=== PATIENT | male | born 1945 ===

== ENCOUNTER 2016-07-18 18:11 | Emergency (ER) | payer BC ==
[2016-07-18] MEDS ORDERED: ASPIRIN 81 MG CHEWABLE TABLET PO ONE (18:27)
[2016-07-18] MEDS ORDERED: 0.9 % SODIUM CHLORIDE 1000ML 1,000 ML IV SCH (18:30)
[2016-07-18] MEDS ORDERED: NITROGLYCERIN/D5W 50 MG in DEXTROSE 5 % IN WATER 1 BAG IV SCH ×2 (18:30)
--- NOTE | 2016-07-18 18:32 | Emergency Department Record ---
History of Present Illness - General Chief Complaint: Chest Pain Stated Complaint: CHEST PAIN Time Seen by Provider: 07/18/16 18:26 Source: Patient Mode of Arrival: Wheelchair Limitations: No limitations - History of Present Illness Initial Comments: 70 yo male presents to ED with a CC of worsening chest pain that began last night. Patient describes as symptoms as a "band around the chest", intermittent last night, but more constant this afternoon around 16:00. Patient reports NJ x 5, with stents x 5, sees Dr. Edward Bustillo with [facility]. Patient denies fevers, chills, cough, or recent illness. MD Complaint: Chest pain Onset/Timin -: Hour(s) Onset: Other Pain Location: Substernal Pain Radiation: Jaw/teeth Severity scale (1-10): 10 Quality: Tightness, Similar to prior [place] Consistency: Constant Improves With: Nothing Worsens With: Nothing Treatments Prior to Arrival: Aspirin Treatment Prior to Arrival Comment:: 81mg - Related Data Home Medications Medication Instructions Recorded Confirmed Last Taken Clopidogrel Bisulfate [Clopidogrel] 75 mg PO DAILY 08/10/14 12/14/14 12/13/14 Fluoxetine HCl 40 mg PO DAILY 08/10/14 12/14/14 12/13/14 Isradipine [Isradipine] 5 mg PO DAILY 08/10/14 12/14/14 12/13/14 Metoprolol Tartrate [Metoprolol 50 mg PO DAILY 08/10/14 12/14/14 12/13/14 Tartrate] Simvastatin [Simvastatin] 40 mg PO DAILY 08/10/14 12/14/14 12/13/14 Clopidogrel Bisulfate [Plavix] 75 mg PO DAILY 12/14/14 12/14/14 12/13/14 Previous Rx's Medication Instructions Recorded Hydrocodone/Acetaminophen [Rhodes 0.5 - 1 tab PO TID PRN #10 tab 12/14/14 5mg/325mg] Hydrocodone/Acetaminophen [Rhodes 1 tab PO Q6H PRN #20 tab 12/14/14 5mg/325mg] Allergies Allergy/AdvReac Type Severity Reaction Status Date / Time No Known Drug Allergies Allergy Verified 07/18/16 18:15 Travel Screening - Travel/Exposure Within Last 30 Days Have you traveled within the last 30 days?: No - Travel/Exposure Within Last Year Have you traveled outside the [place] in the last year?: No - Additonal Travel Details Have you been exposed to anyone with a communicable illness?: No - Travel Symptoms Symptom Screening: None Review of Systems Constitutional: Denies: Chills, Fever, Malaise, Night sweats Eyes: Denies: Eye discharge, Eye pain ENT: Denies: Congestion, Ear pain, Epistaxis Respiratory: Denies: Cough, Dyspnea Cardiovascular: Reports: Chest pain. Denies: Dyspnea on exertion, Palpitations Endocrine: Denies: Fatigue, Heat or cold intolerance Gastrointestinal: Denies: Abdominal pain, Nausea, Vomiting Genitourinary: Reports: Hematuria. Denies: Incontinence, Retention Musculoskeletal: Denies: Arthralgia, Back pain, Gout, Joint swelling Skin: Denies: Bruising, Change in color Neurological: Denies: Abnormal gait, Confusion, Headache, Seizure Psychiatric: Denies: Anxiety Hematological/Lymphatic: Denies: Anemia, Blood Clots Past Medical History - SOCIAL HISTORY Smoking Status: Never smoker Alcohol Use: None Drug Use: None - RESPIRATORY Hx Respiratory Disorders: Yes Hx Sleep Apnea: Yes Hx of CPAP: Yes - CARDIOVASCULAR Hx Cardio Disorders: Yes Hx Cardiac Cath: Yes Hx Heart Attack: Yes Hx Hypertension: Yes Comment:: 5 stents - NEURO Hx Neuro Disorders: Yes Hx CVA: Yes - GI Hx GI Disorders: Yes Hx GI Bleed: Yes - Hx Genitourinary Disorders: No - ENDOCRINE Hx Endocrine Disorders: Yes Hx Thyroid Disease: Yes (enlarged) - MUSCULOSKELETAL Hx Musculoskeletal Disorders: Yes Hx Arthritis: No Hx Musculoskeletal Disease: Yes Comment:: right hip replaced - PSYCH Hx Psych Problems: No - HEMATOLOGY/ONCOLOGY Hx Hematology/Oncology Disorders: No Family Medical History Any Significant Family History?: No Hx Cancer: Mother Hx Heart Disease: Father Physical Exam - General General Appearance: Alert, Oriented x3, Cooperative, Moderate distress (appears in moderate distress due to his pain symptoms) Limitations: No limitations - Head Head exam: Atraumatic, Normocephalic, Normal inspection Head exam detail: negative: Abrasion, Contusion, Ramsey's sign, General tenderness, Hematoma, Laceration - Eye Eye exam: Normal appearance. negative: Conjunctival injection, Periorbital swelling, Periorbital tenderness, Scleral icterus - ENT Ear exam: negative: Auricular hematoma, Auricular trauma Nasal Exam: negative: Active bleeding, Discharge, Dried blood Mouth exam: negative: Drooling, Laceration, Tongue elevation - Neck Neck exam: Normal inspection. negative: Meningismus, Tenderness - Respiratory Respiratory exam: Normal lung sounds bilaterally. negative: Respiratory distress, Rhonchi, Stridor, Wheezes - Cardiovascular Cardiovascular Exam: Regular rate, Normal rhythm, Normal heart sounds - GI/Abdominal GI/Abdominal exam: Soft. negative: Rebound, Rigid, Tenderness - Rectal Rectal exam: Deferred - exam: Deferred - Extremities Extremities exam: Normal inspection. negative: Calf tenderness, Pedal edema, Tenderness - Back Back exam: Reports: Normal inspection. Denies: CVA tenderness (R), CVA tenderness (L) - Neurological Neurological exam: Alert, Normal gait, Oriented X3 - Psychiatric Psychiatric exam: Normal affect, Normal mood - Skin Skin exam: Normal color. negative: Abrasion Type of lesion: negative: abrasion Course Vital Signs 07/18/16 18:15 Temperature 97.9 F Pulse Rate 94 H Respiratory 18 Rate Blood Pressure 162/94 Pulse Ox 98 - Reevaluation(s) Reevaluation #1: 07/18/16 18:31 EKG: NSR 95 Normal axis Normal intervals ST depression I, AVLV4-V6 new from previous 09/12/2003 Reevaluation #2: 07/18/16 18:34 Repeat EK:27 NSR 89, Normal axis Normal intervals ST depression I, AVL, [id number] from initial EKG Nitro and Heparin drips ordered to infuse. Reevaluation #3: 07/18/16 19:07 Labs reviewed, Troponin 0.047, labs are grossly unremarkable for an acute process. [facility] 1-call contacted for transfer for NSTEMI. Reevaluation #4: 07/18/16 19:13 Case was discussed with Dr. Smith, EKG faxed to him directly. Will return call shortly. Reevaluation #5: 07/18/16 19:19 Case was discussed with Dr. Smith, will accept patient to SDU for NSTEMI. Face sheet faxed to [facility] for bed request. Patient and family were updated on all results, patient reports improvement in his pain, states "it's much more tolerable". Will continue to monitor pending bed placement. Medical Decision Making - Lab Data Result diagrams: 07/18/16 18:25 07/18/16 18:25 Critical Care Time Critical Care Time: Yes Total Critical Care Time: 45 Critical Care Time: Diagnosis and treatment of NSTEMI, arrangement for transfer to [facility], serial EKGs. Disposition Disposition: Transfer Clinical Impression: NSTEMI (non-ST elevated myocardial infarction) Chest pain Qualifiers: Chest pain type: unspecified Qualified Code(s): R07.9 - Chest pain, unspecified Disposition: Acute Care Hospital Transfer Transfer To: [facility] Reason For Transfer: Cardiac Ischemia Accepting Physician: Luis Time Discussed w/Accepting Physician: 19:20 Condition: (2) Stable Forms: Patient Portal Access Time of Disposition: 19:20
[2016-07-18] MEDS ORDERED: HEPARIN SODIUM 1000 UNIT/1 ML 10ML VIAL IVP ONE (18:35)
[2016-07-18 18:40] LABS: BASO % 0.3 % (0-6); EOS % 4.5 % (0-6); GRAN % 43.8 % (47-80); HEMATOCRIT 43.6 % (42.0-52.0); HEMOGLOBIN 14.9 gm/dl (14.0-18.0); LYMPH % 40.4 % (16-45); MEAN CELL VOLUME 82.4 fl (81-97); MEAN CORPUSCULAR HEMOGLOBIN 28.2 pg (27-33); MEAN CORPUSCULAR HGB CONC 34.2 g/dl (32-36); MEAN PLATELET VOLUME 10.8 fl (7.4-10.4); PLATELET COUNT 187 K/uL (130-400); RED BLOOD COUNT 5.29 M/uL (4.40-5.70); RED CELL DISTRIBUTION WIDTH 13.5 % (11.5-14.5); WHITE BLOOD COUNT W/O DIFF 6.7 K/uL (4.2-12.2)
[2016-07-18] MEDS ORDERED: HEPARIN SODIUM/D5W 25,000 UNITS in DEXTROSE 5 % IN WATER 1 BAG IV SCH ×2 (18:45)
[2016-07-18 18:53] LABS: ALB/GLOB RATIO 1.5 (1.1-1.8); ALBUMIN 4.5 gm/dL (3.5-5.0); ALKALINE PHOSPHATASE 139 U/L (38-126); ALT/SGPT 31 U/L (21-72); ANION GAP 13.4 (7-16); AST/SGOT 20 U/L (17-59); BILIRUBIN,TOTAL 1.16 mg/dL (0.2-1.3); BLOOD UREA NITROGEN 17 mg/dL (9-20); CARBON DIOXIDE 26.6 mmol/L (22-30); CREATINE PHOSPHOKINASE 53 U/L (55-170); CREATININE 0.9 mg/dL (0.66-1.25); EST GLOMERULAR FILTRATION RATE > 60 ml/min; GLUCOSE,RANDOM 144 mg/dL (70-110); TOTAL PROTEIN 7.5 gm/dL (6.3-8.2)
[2016-07-18 19:04] LABS: CKMB 1.1 ug/L (0-6); TROPONIN I 0.047 ng/mL (0.00-0.034)
--- NOTE | 2016-07-21 14:52 | RADIOLOGY REPORT ---
EXAM: SEMI-ERECT PORTABLE CHEST HISTORY: CHEST PAIN. TECHNIQUE: A semi-erect portable chest was obtained. Comparison: 08/04/14 chest. FINDINGS: The heart size is stable. The lungs are clear. No pneumothorax. IMPRESSION: NEGATIVE CHEST EXAMINATION. JOB NUMBER: [id number] MTDD
== END 2016-07-18 20:00 | disposition short-term general hospital (02) ==
LOC: ER 18:11
DX: I21.4 Non-ST elevation (NSTEMI) myocardial infarction (principal); I10 Essential (primary) hypertension; I25.2 Old myocardial infarction
CPT/HCPCS: 71010; 80053; 82550; 82553; 84484; 85025; 93005; 93010; 96365; 96366; 96368; 96375; 99285; J7030

== ENCOUNTER 2017-12-09 22:17 | Emergency (ER) | payer BC ==
[2017-12-09] MEDS ORDERED: ASPIRIN 325 MG TABLET PO ONE (23:05)
--- NOTE | 2017-12-09 23:08 | Emergency Department Record ---
History of Present Illness - General Chief Complaint: Difficulty Breathing Stated Complaint: ANEESH Time Seen by Provider: 12/09/17 22:53 Source: Patient Mode of Arrival: Wheelchair Limitations: No limitations - History of Present Illness Initial Comments: The patient is here due to a 4 day hx of progressively increasing VILLA and chest discomfort with exertion. The patient presently denies any pain or discomfort and states it only comes on with exertion. He has an extensive cardiac hx and states he has 10 stents. The patient did just have a hip replacement about 3 weeks ago. MD Complaint: Shortness of breath Onset/Timin -: Days(s) Severity: Mild Associated Symptoms: Denies other symptoms - Related Data Home Oxygen Therapy: No Home Medications Medication Instructions Recorded Confirmed Last Taken Aspirin 81 mg PO DAILY 12/09/17 12/09/17 Unknown Oxybutynin Chloride [Oxybutynin 5 mg PO DAILY 12/09/17 12/09/17 Unknown Chloride ER] Allergies Allergy/AdvReac Type Severity Reaction Status Date / Time No Known Drug Allergies Allergy Verified 07/18/16 18:15 Travel Screening - Travel/Exposure Within Last 30 Days Have you traveled within the last 30 days?: No - Travel/Exposure Within Last Year Have you traveled outside the [place] in the last year?: No - Additonal Travel Details Have you been exposed to anyone with a communicable illness?: No - Travel Symptoms Symptom Screening: None Review of Systems Constitutional: Denies: Chills, Fever Eyes: Denies: Eye discharge ENT: Denies: Congestion Respiratory: Reports: Dyspnea. Denies: Cough Cardiovascular: Reports: Chest pain. Denies: Arrhythmia Endocrine: Reports: Fatigue Gastrointestinal: Denies: Abdominal pain Genitourinary: Denies: Dysuria Musculoskeletal: Denies: Arthralgia Past Medical History - SOCIAL HISTORY Smoking Status: Never smoker Alcohol Use: None Drug Use: None - RESPIRATORY Hx Respiratory Disorders: Yes Hx Sleep Apnea: Yes Hx of CPAP: Yes - CARDIOVASCULAR Hx Cardio Disorders: Yes Hx Cardiac Cath: Yes Hx Heart Attack: Yes (~Jan 2017) Hx Hypertension: Yes Comment:: [address] [facility] [address] Bustillo - NEURO Hx Neuro Disorders: Yes Hx CVA: Yes - GI Hx GI Disorders: Yes Hx GI Bleed: Yes - Hx Genitourinary Disorders: No - ENDOCRINE Hx Endocrine Disorders: Yes Hx Thyroid Disease: Yes (enlarged) - MUSCULOSKELETAL Hx Musculoskeletal Disorders: Yes Hx Arthritis: No Hx Musculoskeletal Disease: Yes Comment:: right hip replaced - PSYCH Hx Psych Problems: No - HEMATOLOGY/ONCOLOGY Hx Hematology/Oncology Disorders: Yes Hx Cancer: Yes (prostate) Hx Chemotherapy: Yes Hx Radiation Therapy: Yes Family Medical History Any Significant Family History?: No Hx Cancer: Mother Hx Heart Disease: Father Physical Exam - General General Appearance: Alert, Oriented x3, Cooperative, No acute distress - Head Head exam: Atraumatic, Normocephalic, Normal inspection - Eye Eye exam: Normal appearance, PERRL - ENT Throat exam: Normal inspection. negative: Tonsillar erythema, Tonsillar exudate - Neck Neck exam: Normal inspection, Full ROM. negative: Tenderness - Respiratory Respiratory exam: Normal lung sounds bilaterally. negative: Respiratory distress - Cardiovascular Cardiovascular Exam: Regular rate, Normal rhythm, Normal heart sounds - GI/Abdominal GI/Abdominal exam: Soft, Normal bowel sounds. negative: Tenderness - Extremities Extremities exam: Normal inspection - Neurological Neurological exam: Alert. negative: Motor sensory deficit Course Vital Signs 12/09/17 22:34 Temperature 98.3 F Pulse Rate 85 Respiratory 20 Rate Blood Pressure 120/87 Pulse Ox 94 L - Reevaluation(s) Reevaluation #1: The patient is doing well and I did discuss the lab results with him. He is mildly anemic and he denies any black or bloody stools. Due to the extensive cardiac hx I did recommend transfer to [facility] and the patient agrees with the plan. 12/10/17 00:10 Reevaluation #2: The patient is doing well at this time. He is resting comfortably with no pain or discomfort. I did discuss the case with the [facility] attending Dr. Schwartz and she does accept the patient to [facility]. 12/10/17 00:27 Medical Decision Making - Data Complexity MDM Data: Labs Ordered and/or Reviewed, X-Ray Ordered and/or Reviewed, EKG Ordered and/or Reviewed - Lab Data Result diagrams: 12/09/17 23:29 12/09/17 23:29 - EKG Data -: EKG Interpreted by Me EKG: Unchanged From Previous (Possible lateral wall ischemia.) - Radiology Data Radiology results: Report reviewed (CXR: CMG, O/W neg.) Disposition Disposition: Transfer Clinical Impression: Unstable angina Disposition: Acute Care Hospital Transfer Transfer To: [facility] Reason For Transfer: [facility] Accepting Physician: Lana Time Discussed w/Accepting Physician: 00:28 Condition: (2) Stable Forms: Patient Portal Access Time of Disposition: 00:28 Quality - Quality Measures Quality Measures: N/A - Blood Pressure Screening View Details: Yes Does Patient Have Any of the Following: No Blood Pressure Classification: Pre-Hypertensive BP Reading Systolic Measurement: 120 Diastolic Measurement: 87 Screening for High Blood Pressure: < Pre-Hypertensive BP, F/U Documented > [ G8950] Pre-Hypertensive Follow-up Interventions: Referral to alternative/primary care provider.
[2017-12-09 23:38] LABS: BASO % 0.2 % (0-6); EOS % 2.2 % (0-6); GRAN % 65.3 % (47-80); HEMATOCRIT 33.3 % (42.0-52.0); HEMOGLOBIN 10.9 gm/dl (14.0-18.0); LYMPH % 24.2 % (16-45); MEAN CELL VOLUME 83.7 fl (81-97); MEAN CORPUSCULAR HGB CONC 32.7 g/dl (32-36); MEAN PLATELET VOLUME 9.6 fl (7.4-10.4); MONO % 8.1 % (0-9); PLATELET COUNT 242 K/uL (130-400); RED BLOOD COUNT 3.98 M/uL (4.40-5.70); RED CELL DISTRIBUTION WIDTH 14.1 % (11.5-14.5); WHITE BLOOD COUNT W/O DIFF 5.8 K/uL (4.2-12.2)
[2017-12-09 23:46] LABS: MEAN CORPUSCULAR HEMOGLOBIN 27.3 pg (27-33)
[2017-12-09 23:48] LABS: BLOOD UREA NITROGEN 22 mg/dL (8-23); CREATININE 1.1 mg/dL (0.7-1.2); EST GLOMERULAR FILTRATION RATE > 60 mL/min; PROTHROMBIN TIME (PATIENT) 11.2 SECONDS (9.5-12.1)
[2017-12-09 23:51] LABS: GLUCOSE,RANDOM 114 mg/dL (74-109)
[2017-12-09 23:54] LABS: CREATINE PHOSPHOKINASE 38 U/L (39-308)
[2017-12-09 23:56] LABS: CKMB 1.3 ng/mL (<6.73)
--- NOTE | 2017-12-11 09:51 | RADIOLOGY REPORT ---
EXAM: CHEST, SINGLE VIEW HISTORY: CHEST PAIN. TECHNIQUE: A single frontal view of the chest was obtained. Comparison: 07/18/16 chest. FINDINGS: The heart size is stable. The lungs are clear. No pneumothorax. IMPRESSION: NO ACUTE CARDIOPULMONARY PROCESS. JOB NUMBER: [id number] MTDD
== END 2017-12-10 02:30 | disposition short-term general hospital (02) ==
LOC: ER 22:17
DX: I20.0 Unstable angina (principal); R06.02 Shortness of breath; D64.9 Anemia, unspecified; I10 Essential (primary) hypertension; I25.2 Old myocardial infarction; Z95.5 Presence of coronary angioplasty implant and graft
CPT/HCPCS: 71045; 80048; 82550; 82553; 83880; 84484; 85025; 85610; 85730; 93005; 93010; 99285

== ENCOUNTER 2018-11-13 16:48 | Emergency (ER) | payer BC ==
[2018-11-13] MEDS ORDERED: ASPIRIN 81 MG CHEWABLE TABLET PO ONE (17:17)
[2018-11-13] MEDS ORDERED: NITROGLYCERIN 0.4MG SL TABLET #25 BTL SL PRN (17:17)
--- NOTE | 2018-11-13 17:17 | Emergency Department Record ---
History of Present Illness - General Chief Complaint: Chest Pain Time Seen by Provider: 11/13/18 16:57 Source: Patient Mode of Arrival: Ambulatory Limitations: No limitations - History of Present Illness Initial Comments: pt has been having intermittent chest pain for 2 days that feels exactly like when he had a heart attack. it is squeezing on the left and lasts a few minutes then goes away and comes back Complaint: Chest pain Onset/Timin -: Days(s) Pain Location: Substernal Pain Radiation: Neck Severity: Moderate Severity scale (1-10): 5 Quality: Other Consistency: Intermittent Improves With: Nothing Worsens With: Nothing Anginal Symptoms: Dyspnea Treatments Prior to Arrival: None - Related Data Allergies Allergy/AdvReac Type Severity Reaction Status Date / Time No Known Drug Allergies Allergy Verified 11/13/18 17:02 Travel Screening - Travel/Exposure Within Last 30 Days Have you traveled within the last 30 days?: No - Travel/Exposure Within Last Year Have you traveled outside the [place] in the last year?: No - Additonal Travel Details Have you been exposed to anyone with a communicable illness?: No - Travel Symptoms Symptom Screening: None Review of Systems Reviewed: No additional complaints except as noted below Constitutional: Reports: As per HPI. Denies: Chills, Fever, Malaise, Night sweats, Weakness, Weight change Eyes: Reports: As per HPI. Denies: Eye discharge, Eye pain, Photophobia, Vision change ENT: Reports: As per HPI. Denies: Congestion, Dental pain, Ear pain, Epistaxis, Hearing loss, Throat pain Respiratory: Reports: As per HPI. Denies: Cough, Dyspnea, Hemoptysis, Stridor, Wheezes Cardiovascular: Reports: As per HPI, Chest pain. Denies: Arrhythmia, Dyspnea on exertion, Edema, Murmurs, Orthopnea, Palpitations, Paroxysmal nocturnal dyspnea, Rheumatic Fever, Syncope Endocrine: Reports: As per HPI. Denies: Fatigue, Heat or cold intolerance, Polydipsia, Polyuria Gastrointestinal: Reports: As per HPI. Denies: Abdominal pain, Constipation, Diarrhea, Hematemesis, Hematochezia, Melena, Nausea, Vomiting Genitourinary: Reports: As per HPI. Denies: Dysuria, Frequency, Hematuria, Incontinence, Retention, Testicular pain, Testicular mass, Urgency Musculoskeletal: Reports: As per HPI. Denies: Arthralgia, Back pain, Gout, Joint swelling, Myalgia, Neck pain Skin: Reports: As per HPI. Denies: Bruising, Change in color, Change in hair/nails, Lesions, Pruritus, Rash Neurological: Reports: As per HPI. Denies: Abnormal gait, Confusion, Headache, Numbness, Paresthesias, Seizure, Tingling, Tremors, Vertigo, Weakness Psychiatric: Reports: As per HPI. Denies: Anxiety, Auditory hallucinations, Depression, Homicidal thoughts, Suicidal thoughts, Visual hallucinations Hematological/Lymphatic: Reports: As per HPI. Denies: Anemia, Blood Clots, Easy bleeding, Easy bruising, Swollen glands Past Medical History - SOCIAL HISTORY Smoking Status: Never smoker Alcohol Use: None Drug Use: None - RESPIRATORY Hx Respiratory Disorders: Yes Hx Sleep Apnea: Yes Hx of CPAP: Yes - CARDIOVASCULAR Hx Cardio Disorders: Yes Hx Heart Attack: Yes (~Jan 2017) Comment:: [address] [facility] [address] Bustillo - NEURO Hx Neuro Disorders: Yes Hx CVA: Yes - GI Hx GI Disorders: Yes Hx GI Bleed: Yes - Hx Genitourinary Disorders: No - ENDOCRINE Hx Endocrine Disorders: Yes Hx Thyroid Disease: Yes (enlarged) - MUSCULOSKELETAL Hx Musculoskeletal Disorders: Yes Hx Arthritis: No Hx Musculoskeletal Disease: Yes Comment:: right hip replaced - PSYCH Hx Psych Problems: No - HEMATOLOGY/ONCOLOGY Hx Hematology/Oncology Disorders: Yes Hx Cancer: Yes (prostate) Hx Chemotherapy: Yes Hx Radiation Therapy: Yes Family Medical History Any Significant Family History?: Yes Hx Cancer: Mother Hx Heart Disease: Father Physical Exam - General General Appearance: Alert, Oriented x3, Cooperative, Mild distress - Head Head exam: Normal inspection - Eye Eye exam: Normal appearance, PERRL, EOMI Pupils: Normal accommodation - ENT ENT exam: Normal exam, Mucous membranes moist, Normal external ear exam, Normal orophraynx Ear exam: Normal external inspection. negative: External canal tenderness Nasal Exam: Normal inspection. negative: Discharge, Sinus tenderness Mouth exam: Normal external inspection, Tongue normal Teeth exam: Normal inspection. negative: Dental caries Throat exam: Normal inspection. negative: Tonsillar erythema, Tonsillar exudate - Neck Neck exam: Normal inspection, Full ROM. negative: Tenderness - Respiratory Respiratory exam: Normal lung sounds bilaterally. negative: Respiratory distress - Cardiovascular Cardiovascular Exam: Regular rate, Normal rhythm, Normal heart sounds - GI/Abdominal GI/Abdominal exam: Soft, Normal bowel sounds. negative: Tenderness - Rectal Rectal exam: Deferred - exam: Deferred - Extremities Extremities exam: Normal inspection, Full ROM, Normal capillary refill. negative: Tenderness - Back Back exam: Reports: Normal inspection, Full ROM. Denies: Muscle spasm, Rash noted, Tenderness - Neurological Neurological exam: Alert, CN II-XII intact, Normal gait, Oriented X3 - Psychiatric Psychiatric exam: Normal affect, Normal mood - Skin Skin exam: Dry, Intact, Normal color, Warm Course Vital Signs 11/13/18 17:03 Temperature 98.4 F Pulse Rate 68 Respiratory 20 Rate Blood Pressure 161/87 Pulse Ox 98 Medical Decision Making - Lab Data Result diagrams: 11/13/18 17:25 11/13/18 17:25 Disposition Disposition: Transfer Clinical Impression: Unstable angina Disposition: Acute Care Hospital Transfer Transfer To: [facility] Reason For Transfer: chest pain Accepting Physician: dr duarte Time Discussed w/Accepting Physician: 18:48 Forms: Patient Portal Access Quality - Quality Measures Quality Measures: N/A - Blood Pressure Screening Does Patient Have Any of the Following: No Blood Pressure Classification: Pre-Hypertensive BP Reading Systolic Measurement: 161 Diastolic Measurement: 87 Screening for High Blood Pressure: < Pre-Hypertensive BP, F/U Documented > [G8950] Pre-Hypertensive Follow-up Interventions: Follow-up with rescreen every year.
[2018-11-13 17:38] LABS: ABSOLUTE NEUTROPHIL COUNT 3.64; BASO % 0.3 % (0-6); EOS % 4.2 % (0-6); HEMATOCRIT 39.8 % (42.0-52.0); HEMOGLOBIN 13.1 gm/dl (14.0-18.0); LYMPH % 30.3 % (16-45); MEAN CELL VOLUME 83.6 fl (81-97); MEAN CORPUSCULAR HEMOGLOBIN 27.5 pg (27-33); MEAN CORPUSCULAR HGB CONC 32.9 g/dl (32-36); MEAN PLATELET VOLUME 10.8 fl (7.4-10.4); MONO % 8.2 % (0-9); PLATELET COUNT 201 K/uL (130-400); RED BLOOD COUNT 4.76 M/uL (4.40-5.70); RED CELL DISTRIBUTION WIDTH 13.6 % (11.5-14.5); WHITE BLOOD COUNT W/O DIFF 6.4 K/uL (4.2-12.2)
[2018-11-13 17:50] LABS: BLOOD UREA NITROGEN 16 mg/dL (8-23); EST GLOMERULAR FILTRATION RATE > 60 mL/min
[2018-11-13 17:53] LABS: GLUCOSE,RANDOM 135 mg/dL (74-109)
[2018-11-13 17:55] LABS: CREATINE PHOSPHOKINASE 50 U/L (39-308); PARTIAL THROMBOPLASTIN TIME 24.3 SECONDS (24.5-39.1)
[2018-11-13 17:57] LABS: CKMB 1.3 ng/mL (<6.73)
[2018-11-13] MEDS ORDERED: NITROGLYCERIN/D5W 50 MG/250 ML ML IV SCH ×2 (18:15→18:45)
[2018-11-13] MEDS ORDERED: ONDANSETRON HCL IV 4 MG/2 ML VIAL IVP ONE (18:29)
[2018-11-13] MEDS ORDERED: HEPARIN SODIUM/D5W 25,000 UNITS/500 ML BAG IV SCH (18:45)
[2018-11-13] MEDS ORDERED: HEPARIN SODIUM 1000 UNIT/1 ML 10ML VIAL IVP ONE (18:45)
--- NOTE | 2018-11-15 08:08 | RADIOLOGY REPORT ---
EXAM: CHEST, ONE VIEW HISTORY: LEFT SIDED CHEST PAIN. TECHNIQUE: A single AP view of the chest was obtained. Comparison: 12/09/17. FINDINGS: The cardiomediastinal silhouette is unremarkable for AP technique. The pulmonary vasculature is not congested. No focal consolidation, pleural effusion or pneumothorax is seen. IMPRESSION: NO EVIDENCE FOR PNEUMONIA OR PULMONARY EDEMA. JOB NUMBER: [id number] MTDD
== END 2018-11-13 20:47 | disposition short-term general hospital (02) ==
LOC: ER 16:48
DX: I20.0 Unstable angina (principal); R06.09 Other forms of dyspnea; I25.2 Old myocardial infarction; Z86.73 Personal history of transient ischemic attack (TIA), and cerebral infarction without residual deficits
CPT/HCPCS: 71045; 80048; 82550; 82553; 84484; 85025; 85379; 85610; 85730; 93005; 93010; 96365; 96366; 96375; 99285; J2405